=== PATIENT | male | born 1990 | race Caucasian/White ===

== ENCOUNTER → 2018-09-14 09:53 | Outpatient (CLI) | payer MEDICAID ==
[~2018-09-14 09:53] MED LIST: ASPIRIN EC81 M1 PO; BENADRYL25 MG PO; IBUPROFEN200 MG PO; KEFLEX500 MG PO; OXYCODONE HCL5 M1 PO; VISTARIL50 MG PO
[2018-09-21 22:12] VITALS: BMI 20.7
== END | disposition home or self-care (01) ==
LOC: D.MRI 09:53
PROVIDERS: ATTEND Orthopaedic Surgery
DX: S83.206A Unspecified tear of unspecified meniscus, current injury, right knee, initial encounter (principal)

== ENCOUNTER 2018-09-21 14:23 | Observation (INO) | payer MEDICAID ==
[2018-09-21] VITALS (7 sets, daily range): BP systolic 115–131; BP diastolic 71–82; Ht 175.3 cm; Wt 63.6 kg
[~2018-09-21] VITALS: Ht 175.3 cm; Wt 63.6 kg
[~2018-09-21 14:23] MED LIST changes: -ASPIRIN EC81 M1 PO; -KEFLEX500 MG PO; -OXYCODONE HCL5 M1 PO; -VISTARIL50 MG PO
--- NOTE | 2018-09-21 22:30 | NUR ---
RCVD PT FROM PACU. BREATHING EVEN AND NONLABORED, NO S/S OF DISTRESS OTHER PAIN REPORTED AT 8. IV LOCATED TO LEFT FOREARM, STARTED 1/2NS AT 50ML/HR. POSTOP VITALS STABLE. ADMINISTERED DILAUDID PER DRS ORDERS, WILL CONTINUE TO MONITOR. BED LOW, RAILS UP X2, CALL LIGHT IN REACH.
[2018-09-22] VITALS (7 sets, daily range): BP systolic 91–120; BP diastolic 56–72
--- NOTE | 2018-09-22 08:00 | NUR ---
ASSESSMENT PER FLOW SHEET. PT IS WITHOUT DISTRESS. CALL LIGHT IN REACH
[2018-09-22] MEDS ORDERED: OXYCODONE HCL5 M1 PO (08:32)
[2018-09-22] MEDS ORDERED: KEFLEX500 MG PO (08:32)
[2018-09-22] MEDS ORDERED: VISTARIL50 MG PO (08:32)
[2018-09-22] MEDS ORDERED: ASPIRIN EC81 M1 PO (08:34)
--- NOTE | 2018-09-22 09:18 | MORECARE ---
CASE MANAGEMENT DISCHARGE SUMMARY PATIENT: GERARDO GRIJALVA UNIT: [id number] ADM DATE: 09/21/18 AGE: 27 : [birth year] SEX: M ROOM/BED: D.2218 AUTHOR: MADHU LLAMAS PHYSICIAN: REFERRING PHYSICIAN: VERNA CLARK DO DATE OF SERVICE: 09/22/18 Discharge Plan Patient Name: GERARDO GRIJALVA Facility: [facility]:[place] : 1990 Planned Disposition: Home or Self Care Anticipated Discharge Date: Discharge Date: Expected LOS: Initial Reviewer: [email or web address] Initial Review Date: 09/21/2018 Generated: 09/22/18 10:17 am Comments DCP- Discharge Planning Updated by [email or web address]: Maryjane Chandler on 09/22/18 8:[address] Patient Name: GERARDO GRIJALVA Admission Status: Elective Accout number: [id number] Admission Date: 09-21-2018 : 1990 Admission Diagnosis: Attending: VERNA CLARK Current LOS: 1 Anticipated DC Date: Planned Disposition: Home or Self Care Primary Insurance: MEDICAID [place] Discharge Planning Comments: CM met with patient to complete initial dc planning assessment. CM educated patient on the CM role and verbal consent given by patient to complete assessment. Patient lives at home with his and children where he is independent with his care. At discharge patient plans to return home and feels this is a safe discharge. 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 CM discussed availability of home health, rehab services, and medical equipment. Patient states that he has crutches in his car and he knows how to use them. Patient denied known discharge needs at this time. CM will continue to follow and will assist as needed with dc plans/needs. Dialysis Technician: Maryjane Chandler DCPIA - Discharge Planning Initial Assessment Updated by [id number]: Maryjane Chandler on 09/22/18 9:12 am * Is the patient Alert and Oriented? Yes * How many steps to enter\exit or inside your home? * PCP LISSETH CABRAL * [facility] [address] * Preadmission Environment Home with Family * ADLs Independent * Equipment Crutch * List name and contact numbers for known caregivers / representatives who currently or will assist patient after discharge: KEITH GRIJALVA () [phone] * Verbal permission to speak to the caregivers and representatives has been obtained from the patient. N/A * Community resources currently utilized None * Additional services required to return to the preadmission environment? No * Can the patient safely return to the preadmission environment? Yes * Has this patient been hospitalized within the prior 30 days at any hospital? No Patient Name: GERARDO GRIJALVA Page [id number] at 0918 All edits/amendments must be made on the electronic document DICTATION DATE: 09/22/18916 COMPUTER MECHANIC: KENNETH 09/22/18916 RPT#: [id number] DC DATE: STATUS: ADM IN [facility] [address] [place] [address] END OF REPORT
--- NOTE | 2018-09-22 12:15 | NUR ---
RIDE ON WAY. IV DCD WITH CATH TIP INTACT.
--- NOTE | 2018-09-22 12:30 | NUR ---
DISCHARGE INSTRUCTIONS,STATES UNDERSTANDING. WAITING ON RIDE
--- NOTE | 2018-09-22 12:49 | NUR ---
LEFT UNIT VIA WHEELCHAIR FOR TRANSPORT HOME
--- NOTE | 2018-09-22 13:38 | OP ---
PATIENT NAME: GERARDO ROCK MEDICAL RECORD: [id number] :[birth year] LOCATION:D.MS [id number] ADMISSION DATE:09/21/18 SURGEON: FRANCISCO CLARK, DATE OF OPERATION: 09/21/2018 PROCEDURES PERFORMED: Right knee tibial tubercle osteotomy and transfer, lateral release, osteochondral defect filling with DeNovo, removal of the cartilage body of the knee, medial capsular imbrication. PREOPERATIVE DIAGNOSES: Right knee maltracking, osteochondral defect of the patella and free loose body of the cartilage from the patella and abnormal TT-TG. POSTOPERATIVE DIAGNOSES: Right knee maltracking, osteochondral defect of the patella and free loose body of the cartilage from the patella and abnormal TT-TG. INDICATIONS: Mr. Rock is a 27-year-old male who had a right knee dislocation a few weeks ago. His knee was locked and he could not flex it past 90 degrees. I got an MRI that showed a large loose body from the cartilage measuring almost 2 cm x 1 cm x 0.5 cm. It was cut in the suprapatellar pouch. His TT-TG was also 28, which is 8 mm more than normal, which 20 will be in an acceptable range rather. He had symptoms of instability in the past, but his right knee has never dislocated. His left knee had in the past and he had an arthroscopic surgery to remove the piece of cartilage but did not have any other surgeries on it. I informed him that I could do the same thing to remove the piece of cartilage and he would be at risk for patellar dislocation and continued pain. We can do the surgery to remove his tibial tubercle over and help with the tracking of his patella and decrease his chance of dislocating again. He was aware of that risk of nonunion, malunion, need for further surgery, fracture, bleeding, damage to nerves and vessels in the area, infection and he was okay with those risks and signed the consent. SURGEON: Francisco Clark DO DESCRIPTION OF PROCEDURE: The patient was given a block by anesthesia in the preoperative area. He was taken to the operative suite, laid in the supine position. The patient was then sedated and an LMA was placed. He was given 2 grams Ancef preoperatively. The right lower extremity was then prepped and draped in sterile fashion. Timeout was performed and everyone was in agreement as the correct side, site, patient, and procedure. Incision was marked out in the midline of the knee just superior to the patella and 2 fingerbreadths below the tibial tubercle. The Esmarch was then used to exsanguinate the right lower extremity. The tourniquet was inflated to 350 mmHg, was up for 83 minutes. The incision then began down through the skin with a 10 blade scalpel. The capsule was cleared off and a lateral release was done at that time of the knee capsule. The patella was then everted. The loose body of the cartilage was then removed and a loose body was removed and then, the osteochondral defect was seen, which was 1 cm x 1 cm x 0.5 cm in depth. Then, the EverSeal glue was put in the defect after it had been cleaned up with a curette and then the DeNovo tissue graft articular cartilage was placed in the defect and then EverSeal was sealed over it and flattened and smoothed out with a freer. OPERATIVE REPORT [id number] GERARDO ROCK Once that had dried, the attention was then drawn to the osteotomy, the Arthrex AMZ guide was used putting a pin through the tibial tubercle and then using a 45-degree guide, which was in proper position and checked with a guide. The osteotomy was done on the tibial tubercle, it was then transferred medially and slightly anteriorly, medially approximately 12 mm. Then, K-wires were placed in anterior to posterior and then lateral to medial and these were measured and 4.0 cannulated screws were placed after being drilled to compress the osteotomy site. Three of them were placed. The third screw which is more distal as it was being tacked down, the head broke, but was in good position still and was left. The other 2 were left as well. They were countersunk prior to inserting as to not bother. The tourniquet was then let down and any bleeding was coagulated with the Aquamantys and 10 cc of StaGraft DBM Plus was placed in the defect of the tibia. Once that was completed, the bleeding was controlled and then a medial imbrication was done on the medial capsule. Three stitches of [id number] were used at the medial side of the patella and superior side of #5 Ethibond. The skin was then closed with 2-0 Vicryl, after Kimi was placed in the wound after irrigation and then the patient was given 1 gram of TXA. Then, the skin was closed with 2-0 Vicryl in an inverted interrupted fashion and ZipLine placed on the knee. Adaptic, 4 x 4s, ABD, Webril and Maksim wrap and placed on the knee and TAI stocking on the knee. The patient was placed in a hinged knee brace set at 0 and was awakened and taken to the recovery in stable condition. Blood loss was approximately 200 mL. COMPLICATIONS: None. TRANSINT:[id number] Voice Confirmation ID: [id number] DOCUMENT ID: [id number] FRANCISCO CLARK DO at 1338 CC: [id number] DICTATION DATE: 09/21/182107 COMPUTER NETWORKER: 09/21/[address] [facility] [address] [id number]
--- NOTE | 2018-09-24 07:34 | MORECARE ---
CASE MANAGEMENT DISCHARGE SUMMARY PATIENT: GERARDO GRIJALVA UNIT: [id number] ADM DATE: 09/21/18 AGE: 27 : [birth year] SEX: M ROOM/BED: D.2218 AUTHOR: MADHU LLAMAS PHYSICIAN: REFERRING PHYSICIAN: VERNA CLARK DO DATE OF SERVICE: 09/24/18 Discharge Plan Patient Name: GERARDO GRIJALVA Facility: [facility]:[place] : 1990 Planned Disposition: Home or Self Care Anticipated Discharge Date: Discharge Date: 09/22/2018 Expected LOS: 0 Initial Reviewer: [email or web address] Initial Review Date: 09/21/2018 Generated: 09/24/18 8:34 am Comments DCP- Discharge Planning Updated by [email or web address]: Maryjane Chandler on 09/22/18 8:[address] Patient Name: GERARDO GRIJALVA Admission Status: Elective Accout number: [id number] Admission Date: 09-21-2018 : 1990 Admission Diagnosis: Attending: VERNA CLARK Current LOS: 1 Anticipated DC Date: Planned Disposition: Home or Self Care Primary Insurance: MEDICAID [place] Discharge Planning Comments: CM met with patient to complete initial dc planning assessment. CM educated patient on the CM role and verbal consent given by patient to complete assessment. Patient lives at home with his and children where he is independent with his care. At discharge patient plans to return home and feels this is a safe discharge. His sister will be his local city driver home. CM discussed availability of home health, rehab services, and medical equipment. Patient states that he has crutches in his car and he knows how to use them. Patient denied known discharge needs at this time. CM will continue to follow and will assist as needed with dc plans/needs. Cream Hauler: Maryjane Chandler DCPIA - Discharge Planning Initial Assessment Updated by [email or web address]: Maryjane Chandler on 09/22/18 9:12 am * Is the patient Alert and Oriented? Yes * How many steps to enter\exit or inside your home? * PCP LISSETH CABRAL * [id number] [address] * Preadmission Environment Home with Family * ADLs Independent * Equipment Crutch * List name and contact numbers for known caregivers / representatives who currently or will assist patient after discharge: KEITH GRIJALVA () [phone] * Verbal permission to speak to the caregivers and representatives has been obtained from the patient. N/A * Community resources currently utilized None * Additional services required to return to the preadmission environment? No * Can the patient safely return to the preadmission environment? Yes * Has this patient been hospitalized within the prior 30 days at any hospital? No Last DP export: 09/22/18 8:17 am Patient Name: GERARDO GRIJALVA Page [id number] at 0734 All edits/amendments must be made on the electronic document DICTATION DATE: 09/24/18732 SOLUTION DESIGN AND ANALYSIS MANAGER: KENNETH 09/24/18732 RPT#: [id number] DC DATE:09/22/18 STATUS: DIS IN [facility] [address] [place] [address] END OF REPORT
== END 2018-09-22 14:08 | disposition home or self-care (01) ==
LOC: D.OPS 14:23 → D.PAN 16:15 → OBSVTIME 21:00 → D.MS 21:00
PROVIDERS: ADMIT Orthopaedic Surgery; ATTEND Orthopaedic Surgery
DX: M22.8X1 Other disorders of patella, right knee (principal); M23.41 Loose body in knee, right knee